=== PATIENT | female | born 1985 | race Two or more races ===

== ENCOUNTER 2017-09-26 19:32 | Emergency (ER) | payer OTHER ==
[~2017-09-26] VITALS: Ht 162.6 cm; Wt 66.0 kg
[2017-09-26 23:35] LABS: BASOPHILS % 0.4 % (0.0-2.0); EOSINOPHILS % 1.8 % (0.0-5.0); HEMATOCRIT. 41.2 % (36.0-48.0); HEMOGLOBIN. 13.9 g/dL (12.0-16.0); LYMPHOCYTES % 28.5 % (20.0-50.0); MEAN CORPUSCULAR HEMOGLOBIN 29.5 pg (28.0-32.0); MEAN CORPUSCULAR VOLUME 87.6 fL (81.0-99.0); MEAN PLATELET VOLUME 8.8 fl (7.4-10.4); NEUTROPHILS % 63.3 % (40.0-76.0); PLATELET 311 x1000/uL (130-400)
[2017-09-27 00:01] LABS: CARBON DIOXIDE 25 mEq/L (21-32); CHLORIDE 102 mEq/L (98-107); TROPONIN I < 0.02 ng/mL (0.00-0.04)
[2017-09-27 02:58] VITALS: BP 106/77
== END 2017-09-27 03:23 | disposition home or self-care (01) ==
LOC: ER 19:32
DX: R55 Syncope and collapse (principal); R51 Headache; H92.09 Otalgia, unspecified ear; R06.02 Shortness of breath; R20.0 Anesthesia of skin
CPT/HCPCS: 36415; 70450; 71045; 80053; 81025; 84484; 85025; 85379; 93005; 99285

== ENCOUNTER 2017-12-01 12:21 | Emergency (ER) | payer OTHER ==
[~2017-12-01] VITALS: Ht 162.6 cm; Wt 66.0 kg
[2017-12-01] MEDS ORDERED: ONDANSETRON HCL 4MG/2ML VIAL IV STA (13:11)
[2017-12-01] MEDS ORDERED: SODIUM CHLORIDE 0.9% 1,000 ML IV ONE ×2 (13:11→16:54)
[2017-12-01] MEDS ORDERED: KETOROLAC 30MG/ML VIAL IV STA (13:11)
[2017-12-01 14:24] LABS: CLARITY URINE CLEAR (CLEAR); COLOR URINE YELLOW (YELLOW); KETONES URINE 2+ (NEGATIVE); LEUKOCYTE ESTERASE URINE TRACE (NEGATIVE); NITRITE URINE NEGATIVE (NEGATIVE); OCCULT BLOOD URINE 3+ (NEGATIVE); PROTEIN URINE NEGATIVE (NEGATIVE); SPECIFIC GRAVITY URINE 1.012 (1.005-1.030); UROBILINOGEN URINE 0.2 E.U./dL (0.2-1.0)
[2017-12-01 15:06] LABS: BASOPHILS % 0.3 % (0.0-2.0); EOSINOPHILS % 0.2 % (0.0-5.0); HEMATOCRIT. 39.3 % (36.0-48.0); HEMOGLOBIN. 13.6 g/dL (12.0-16.0); LYMPHOCYTES % 12.6 % (20.0-50.0); MEAN CORPUSCULAR HEMOGLOBIN 30.2 pg (28.0-32.0); MEAN CORPUSCULAR VOLUME 87.1 fL (81.0-99.0); MEAN PLATELET VOLUME 8.5 fl (7.4-10.4); MONOCYTES % 5.4 % (2.0-8.0); NEUTROPHILS % 81.5 % (40.0-76.0); PLATELET 308 x1000/uL (130-400); RED BLOOD CELL COUNT 4.51 mill/uL (4.2-5.4); RED CELL DISTRIBUTION WIDTH 14.2 % (11.6-14.6)
[2017-12-01 15:10] LABS: PROTHROMBIN TIME 10.7 sec (9.4-11.6)
[2017-12-01 15:15] LABS: CHLORIDE 107 mEq/L (98-107)
[2017-12-01 15:24] LABS: CREATINE KINASE MB FRACTION 1.6 ng/mL (0.5-3.6)
[2017-12-01 15:28] LABS: CREATINE KINASE 170 IU/L (26-192)
[2017-12-01 15:38] LABS: HCG SCREEN NEGATIVE
[2017-12-01] MEDS ORDERED: ONDANSETRON HCL 4MG/2ML VIAL IV ONE (17:00)
[2017-12-01 18:57] VITALS: BP 135/83
== END 2017-12-01 19:23 | disposition home or self-care (01) ==
LOC: ER 14:05
DX: R06.02 Shortness of breath (principal); R31.9 Hematuria, unspecified
CPT/HCPCS: 36415; 71045; 80053; 81003; 82550; 82553; 83880; 84484; 84703; 85025; 85610; 85730; 93005; 96361; 96374; 96375; 96376; 99285; J1885; J2405; J7030

== ENCOUNTER 2018-09-10 06:02 | Emergency (ER) | payer OTHER ==
[~2018-09-10] VITALS: Ht 162.6 cm; Wt 66.0 kg
[2018-09-10] MEDS ORDERED: SODIUM CHLORIDE 0.9% 1,000 ML IV ONE (06:35)
[2018-09-10] MEDS ORDERED: ONDANSETRON HCL 4MG/2ML INJ IV STA (06:35)
[2018-09-10 06:58] LABS: CLARITY URINE CLOUDY (CLEAR); COLOR URINE YELLOW (YELLOW); KETONES URINE TRACE (NEGATIVE); LEUKOCYTE ESTERASE URINE NEGATIVE (NEGATIVE); NITRITE URINE NEGATIVE (NEGATIVE); OCCULT BLOOD URINE TRACE (NEGATIVE); PH URINE 5.5 (4.5-8.0); PROTEIN URINE NEGATIVE (NEGATIVE); SPECIFIC GRAVITY URINE 1.023 (1.005-1.030); UROBILINOGEN URINE 0.2 E.U./dL (0.2-1.0)
[2018-09-10 07:26] LABS: CHLORIDE 108 mEq/L (98-107)
[2018-09-10 07:32] LABS: BASOPHILS % 0.3 % (0.0-2.0); EOSINOPHILS % 2.7 % (0.0-5.0); HEMOGLOBIN. 12.8 g/dL (12.0-16.0); LYMPHOCYTES % 28.3 % (20.0-50.0); MEAN CORPUSCULAR HEMOGLOBIN 30.6 pg (28.0-32.0); MONOCYTES % 7.8 % (2.0-8.0); NEUTROPHILS % 60.9 % (40.0-76.0); PLATELET 267 x1000/uL (130-400); RED BLOOD CELL COUNT 4.17 mill/uL (4.2-5.4); RED CELL DISTRIBUTION WIDTH 13.7 % (11.6-14.6)
[2018-09-10] MEDS ORDERED: METOCLOPRAMIDE HCL 10MG/2ML VIAL IV ONE (08:45)
[2018-09-10 09:48] VITALS: BP 107/68
== END 2018-09-10 10:00 | disposition home or self-care (01) ==
LOC: ER 06:02
DX: N39.0 Urinary tract infection, site not specified (principal); K52.9 Noninfective gastroenteritis and colitis, unspecified
CPT/HCPCS: 36415; 80053; 81003; 81025; 83690; 85025; 96361; 96374; 96375; 99283; J2405; J2765; J7030